=== PATIENT | female | born 1965 | race Caucasian/White ===

== ENCOUNTER 2017-01-14 09:32 | Day surgery (SDC) | payer BC ==
[~2017-01-14 09:32] MED LIST: ACETAMINOPHEN 1000MG/100 ML PREMIX IV ONE
[2017-01-14] MEDS ORDERED: BUPIVACAINE 0.25% W/EPI MPF 30ML VIAL IVP ONE (13:53)
[2017-01-14] MEDS ORDERED: HYDROCODONE/APAP 7.5/325MG TABLET PO ONE (13:53)
[2017-01-14] MEDS ORDERED: SEVOFLURANE 250 ML INH ONE (15:48)
[2017-01-14] MEDS ORDERED: KETOROLAC 30 MG/ML VIAL IVP ONE (15:48)
[2017-01-14] MEDS ORDERED: LIDOCAINE 2% MDV (20MG/ML) 20ML VIAL IV ONE (15:48)
[2017-01-14] MEDS ORDERED: MEPERIDINE 50 MG/1 ML VIAL IVP ONE (15:48)
[2017-01-14] MEDS ORDERED: PROPOFOL 10 MG/ML VIAL IV ONE (15:48)
[2017-01-14] MEDS ORDERED: MIDAZOLAM HCL 2MG/2ML VIAL IV ONE (15:48)
--- NOTE | 2017-01-18 10:44 | Operative Note ---
DATE OF SURGERY: 01/14/2017 Surgeon: Manjit Paredes D.O. PREOPERATIVE DIAGNOSES: 1. Osteoarthritis of the left knee. 2. Torn medial meniscus, left knee. 3. Synovitis, left knee. POSTOPERATIVE DIAGNOSES: 1. Osteoarthritis, left knee. 2. Synovitis, left knee (2 compartments). OPERATIIVE PROCEDURES: 1. Arthroscopic chondroplasty of the medial femoral condyle and trochlea, left knee. 2. Arthroscopic partial synovectomy (2 compartments), left knee. PROCEDURE: This 51-year-old female was taken to the operating room and placed in the supine position on the operating room table. A general anesthetic was administered, and the left lower extremity was elevated. It was exsanguinated and the tourniquet inflated to 300 mm Hg. Arthroscopic knee campbell was applied. The left knee was then prepped with Hibiclens and draped in the usual sterile fashion. An inferolateral portal was established with a 4 mm arthroscope, and initial evaluation of the joint demonstrated very severe patellofemoral osteoarthritis with a completely denuded bone on the lateral facet of the patella and lateral side of the trochlea. There were also severe grade 3 changes noted on the medial side as well. Chondroplasty of the trochlea was performed through an inferomedial portal. Patient did have significant synovitis here as well, and partial synovectomy was performed. The medial compartment was entered, and we thoroughly probed the medial meniscus and it did not demonstrate a tear in the medial meniscus, but there was a very severe, essentially a grade 4, lesion in the medial femoral condyle. This lesion was about 2.5 cm in the center of the weight-bearing surface, just a small island of articular cartilage present in this lesion. Loose flaps of articular cartilage were present at the posterior aspect of the lesion, and a rotating shaver was used to smooth and trim to stable articular cartilage. The tibial plateau appeared to be normal. The intercondylar notch was examined, and synovitis was present here as well as the medial compartment and patellofemoral joint, and partial synovectomy was performed. The lateral compartment was present and some superficial fraying of the midportion of the body of the lateral meniscus was present. The shaver was used to trim this up, but this really did not consist of a meniscectomy at all. The articular cartilage of the lateral compartment appeared normal below the meniscal rest. The joint was then reexamined, and no additional findings were present, and the joint was suctioned. The instruments were removed, and the portals infiltrated with 0.25% Marcaine with epinephrine. A sterile dressing was applied, tourniquet and knee campbell released, and the patient was taken to the recovery room in satisfactory condition. GROSS PATHOLOGY: This patient demonstrated very severe patellofemoral osteoarthritis with the lateral facet being much more severe than the medial, with grade 3 changes noted on the medial side, severe grade 4 lesion laterally with no articular cartilage present on the bone. The patient also had a very severe chondral lesion on the medial femoral condyle with at least a 2 cm lesion being present there. Marked synovitis also was identified. DO LUIZ Tello
== END 2017-01-14 12:15 | disposition home or self-care (01) ==
LOC: SUR 09:32
PROVIDERS: ATTEND Orthopaedic Surgery
DX: S83.242A Other tear of medial meniscus, current injury, left knee, initial encounter (principal); M17.12 Unilateral primary osteoarthritis, left knee; M65.9 Synovitis and tenosynovitis, unspecified; I10 Essential (primary) hypertension; E78.00 Pure hypercholesterolemia, unspecified
CPT/HCPCS: 29879; 29876; 01400; J1885

== ENCOUNTER 2017-12-02 07:40 | Day surgery (SDC) | payer BC ==
[~2017-12-02 07:40] MED LIST changes: +ACETAMINOPHEN 1,000 MG/100 ML BTL IV ONE; -ACETAMINOPHEN 1000MG/100 ML PREMIX IV ONE
[2017-12-02] MEDS ORDERED: ONDANSETRON HCL IV 4 MG/2 ML VIAL IVP ONE (07:41)
[2017-12-02] MEDS ORDERED: MIDAZOLAM HCL 2MG/2ML VIAL IV ONE (07:41)
[2017-12-02] MEDS ORDERED: LIDOCAINE 2% MDV (20MG/ML) 20ML VIAL IV ONE (07:41)
[2017-12-02] MEDS ORDERED: FENTANYL PF 100MCG/2ML VIAL IV ONE (07:41)
[2017-12-02] MEDS ORDERED: BUPIVACAINE 0.75% W/EPI MPF 30ML VIAL IVP ONE (07:41)
[2017-12-02] MEDS ORDERED: DESFLURANE 240 ML BTL INH ONE (07:41)
[2017-12-02] MEDS ORDERED: METOCLOPRAMIDE HCL 10 MG/2 ML VIAL IVP ONE (07:41)
[2017-12-02] MEDS ORDERED: PROPOFOL 10 MG/ML VIAL IV ONE (07:41)
--- NOTE | 2017-12-02 13:30 | Operative Note ---
DATE OF SURGERY: 12/02/2017 Surgeon: Manjit Paredes DO Referring physician: Sandra Mendoza M.D. PREOPERATIVE DIAGNOSIS: Osteoarthritis of the right knee. POSTOPERATIVE DIAGNOSES: 1. Torn lateral meniscus right knee. 2. Synovitis right knee (two compartments). 3. Osteoarthritis right knee. OPERATION: 1. Arthroscopic partial lateral meniscectomy right knee. 2. Arthroscopic partial synovectomy right knee (two compartments). 3. Arthroscopic chondroplasty medial femoral condyle and trochlea right knee. Anesthesia: General. Indication: This 52-year-old female was taken to the operating room and placed in the supine position on the operating room table. A general anesthetic was administered. The right lower extremity was elevated. It was exsanguinated, the tourniquet inflated to 300 mmHg. Arthroscopic knee campbell applied. The right knee prepped with Hibiclens and draped in the usual sterile fashion. 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 No loosening was present there. Extensive synovitis was present there and partial synovectomy was performed. In addition, the lateral femoral condyle demonstrated a grade 4 lesion and as we moved more centrally, the trochlea demonstrated grade 3 changes and the medial side demonstrating grade 2 changes. The medial and lateral gutters were examined and were found to be normal. The medial compartment was entered and a flap tear of the articular cartilage of the medial femoral condyle was present. A severe grade 2 lesion, almost a very nearly grade 3 lesion present on the medial femoral condyle, this lesion being approximately 2 cm x 3 cm. The medial meniscus was probed and found to be normal. With a loose flap of articular cartilage and the medial femoral condyle being present, the rotating shaver was used to resect unstable fragments of articular cartilage there. The inter-condylar notch was examined and found to be normal. The lateral compartment was entered and the tear of the lateral meniscus was present, radial tears and degenerative-type tears in combination demonstrated an unstable rim of lateral meniscus, this being roughly from the 8 o'clock to 9:30 position. Utilizing the basket forceps and rotating shaver, we resected unstable fragments of the meniscus and the wound was irrigated and partial synovectomy was also performed there. The joint was suctioned. The instruments were removed. The portals infiltrated with 0.25% Marcaine with epinephrine, sterile dressings applied. The tourniquet and knee campbell released. The patient taken to the recovery room in satisfactory condition. GROSS PATHOLOGY: This patient demonstrated severe grade 4 lesion of the lateral femoral condyle and lateral facet of the patella, as well as grade 2 changes of the medial femoral condyle, tear of the lateral meniscus, and synovitis was present as described. LUIZ
== END 2017-12-02 10:18 | disposition home or self-care (01) ==
LOC: SUR 07:40
PROVIDERS: ATTEND Orthopaedic Surgery
DX: M23.261 Derangement of other lateral meniscus due to old tear or injury, right knee (principal); M65.861 Other synovitis and tenosynovitis, right lower leg; M17.11 Unilateral primary osteoarthritis, right knee
CPT/HCPCS: 29881; 29876; 29879; 01400; J2405; J3010; J3490; J2765